=== PATIENT | male | born 1970 | race Native Hawaiian/Other Pacific Islander ===

== ENCOUNTER 2018-07-15 19:58 | Emergency (ER) | payer OTHER ==
[2018-07-15 21:19] VITALS: BP 139/63; PULSE 88; RESP 16; TEMP 98.2; O2SAT 98
[2018-07-15] MEDS ORDERED: PROPARACAINE/FLUORESCEIN SOD 100 DROP/5 ML BOTTLE OD STA (21:43)
[2018-07-15] MEDS ORDERED: PROPARACAINE/FLUORESCEIN SOD 100 DROP/5 ML BOTTLE ONE (21:50)
[2018-07-15] MEDS ORDERED: Tetracaine 0.5% Ophth 2 ML BOTTLE ONE (21:50)
--- NOTE | 2018-07-15 22:23 | ED PDOC ---
HPI: Eye Injury/Pain Time Seen by Provider: 07/15/18 21:40 Chief Complaint (Nursing): Eye Problem Chief Complaint (Provider): right eye injury History Per: Patient (47 y/o male here with right eye injury that occurred today when he lost contact in eye. Notes foreign body sensation. ) Past Medical History Reviewed: Historical Data, Nursing Documentation, Vital Signs Vital Signs: Last Vital Signs Temp 98.2 F 07/15/18 21:15 Pulse 88 07/15/18 21:15 Resp 16 07/15/18 21:15 BP 139/63 07/15/18 21:15 Pulse Ox 98 07/15/18 21:15 - Family History Family History: States: No Known Family Hx - Home Medications Home Medications: Ambulatory Orders Medication Instructions Recorded Ciprofloxacin 0.3% [Ciloxan 0.3% 1 drop [facility] - Allergies Allergies/Adverse Reactions: Allergies Allergy/AdvReac Type Severity Reaction Status Date / Time No Known Allergies Allergy Verified 07/15/18 21:15 Review of Systems ROS Statement: Except As Marked, All Systems Reviewed And Found Negative Physical Exam - Reviewed Nursing Documentation Reviewed: Yes Vital Signs Reviewed: Yes (VISUAL ACUITY RIGHT EYE 20/100 NOT CORRECTED/ LEFT EYE 20/25 WITH CONTACT) - Physical Exam Appears: Positive for: Well, Non-toxic, No Acute Distress Head Exam: Positive for: ATRAUMATIC, NORMAL INSPECTION, NORMOCEPHALIC Skin: Positive for: Normal Color, Warm, DRY Eye Exam: Positive for: Normal appearance, EOMI, PERRL, Conjunctival injection (right eye), Other (contact lens removed from eye. no fluorescein uptake noted) ENT: Positive for: Normal ENT Inspection Neck: Positive for: Normal, Painless ROM Cardiovascular/Chest: Positive for: Regular Rate, Rhythm Respiratory: Positive for: CNT, Normal Breath Sounds Gastrointestinal/Abdominal: Positive for: Normal Exam, Soft Back: Positive for: Normal Inspection Extremity: Positive for: Normal ROM Neurologic/Psych: Positive for: Alert, Oriented - ECG O2 Sat by Pulse Oximetry: 98 - Progress ED Course And Treament: VERBAL CONSENT PRIOR TO PROCEDURE CONTACT LENS REMOVED FROM RIGHT EYE UPPER LID. Disposition - Clinical Impression Clinical Impression: Foreign body in eye - Patient ED Disposition Is Patient to be Admitted: No - Disposition Referrals: Danny Sheth MD [Staff Provider] - Kirit Kay MD [Medical Doctor] - Disposition: Routine/Home Disposition Time: 22:24 Condition: FAIR Prescriptions: Ciprofloxacin 0.3% [Ciloxan 0.3% Ophth SOLN] 1 drop RIGHTEYE QID #1 bottle Instructions: Foreign Body in Eye (DC) Forms: [facility] ED School/Work Excuse
== END 2018-07-15 22:40 | disposition home or self-care (01) ==
LOC: H.ER 19:58
DX: T15.81XA Foreign body in other and multiple parts of external eye, right eye, initial encounter (principal)